=== PATIENT | female | born 1980 | race Two or more races ===

== ENCOUNTER 2017-12-19 15:01 | Outpatient (CLI) | payer OTHER ==
[~2017-12-19 15:01] MED LIST: AMOX1TAB12 PO; BACTROBAN OINT22 GM TP; SINGULAIR10 MG PO
== END 2017-12-19 15:06 | disposition home or self-care (01) ==
LOC: MAMO-SONO 15:01
DX: Z12.31 Encounter for screening mammogram for malignant neoplasm of breast (principal); D24.9 Benign neoplasm of unspecified breast

== ENCOUNTER 2018-09-30 16:33 | Emergency (ER) | payer OTHER ==
[~2018-09-30] VITALS: Ht 160 cm; Wt 50.8 kg
[2018-09-30] MEDS ORDERED: ZYRTEC10 M3 (17:08)
== END 2018-09-30 19:43 | disposition home or self-care (01) ==
LOC: ER 16:33
DX: G45.3 Amaurosis fugax (principal)

== ENCOUNTER 2020-12-19 09:36 | Outpatient (CLI) | payer OTHER ==
[~2020-12-19 09:36] MED LIST changes: +ZYRTEC10 M3
== END 2020-12-19 09:50 | disposition home or self-care (01) ==
LOC: MAMO-SONO 09:36
PROVIDERS: ATTEND Physical Medicine & Rehabilitation Sports Medicine
DX: Z12.31 Encounter for screening mammogram for malignant neoplasm of breast (principal); N60.11 Diffuse cystic mastopathy of right breast

== ENCOUNTER 2023-06-01 21:30 | Emergency (ER) | payer OTHER ==
[~2023-06-01] VITALS: Ht 160 cm; Wt 49.4 kg
[2023-06-01] MEDS ORDERED: SYNTHROID88 MCG PO (22:04)
[2023-06-01 23:02] LABS: HEMOGLOBIN 13.5 g/dL (12.0-15.00); MEAN CELL VOLUME 88.1 fL (80.00-100.00); MEAN CORPUSCULAR HEMOGLOBIN 29.7 pg (27.00-32.0); MEAN CORPUSCULAR HGB CONC 33.7 g/dl (32.0-36.0); PLATELET COUNT 274 K/uL (150-450); RED BLOOD COUNT 4.55 M/uL (4.00-6.00); RED CELL DISTRIBUTION WIDTH 13.8 % (11.5-14.5)
[2023-06-01 23:19] LABS: INR 0.98; PARTIAL THROMBOPLASTIN TIME 25.9 SECONDS (22.0-34.0); PROTHROMBIN TIME 10.3 SECONDS (9.0-11.5)
[2023-06-01 23:21] LABS: CALCIUM 8.9 mg/dL (8.5-10.1); CREATININE SERUM 0.74 mg/dL (0.55-1.02); GFR 85.26; POTASSIUM 4.07 mEq/L (3.5-5.1)
== END 2023-06-02 00:02 | disposition home or self-care (01) ==
LOC: ER 21:30
PROVIDERS: General Practice
DX: R42 Dizziness and giddiness (principal)